=== PATIENT | male | born 1980 | race American Indian/Alaskan Native ===

== ENCOUNTER 2018-11-30 16:03 | Emergency (ER) | payer OTHER ==
--- NOTE | 2018-11-30 16:12 | Emergency Department Report ---
Blank Doc - Documentation Documentation: This is a 38-year-old male that presents with right foot pain and swelling. This initial assessment/diagnostic orders/clinical plan/treatment(s) is/are subject to change based on patient's health status, clinical progression and re- assessment by fellow clinical providers in the ED. Further treatment and workup at subsequent clinical providers discretion. Patient/guardians urged not to elope from the ED as their condition may be serious if not clinically assessed and managed. Initial orders include: 1- Patient sent to [facility] for further evaluation and treatment 2- xray for stress fracture
[2018-11-30] MEDS ORDERED: DECADRON IM ONE (16:37)
[2018-11-30] MEDS ORDERED: IBUPROFEN PO ONE (16:38)
[2018-11-30] MEDS ORDERED: SOLU-Medrol IM ONE (16:38)
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
[2018-11-30] MEDS ORDERED: CATAPRES PO ONE (16:48)
[2018-11-30 17:15] VITALS: BP 144/88
--- NOTE | 2018-11-30 17:33 | XRay Report ---
PROCEDURE: XR FOOT 3+V RT TECHNIQUE: Frontal, lateral, oblique views right foot HISTORY: right foot pain COMPARISONS: None FINDINGS: There is evidence of diffuse edema of the distal leg, ankle and foot. There is no evidence of fracture, subluxation, lytic or blastic change or periosteal reaction. The joint spaces appear to be maintained. There is a plantar calcaneal spur. IMPRESSION: 1. Soft tissue swelling/edema without plain film evidence of acute bony abnormality. If further imaging is required, MRI may be helpful.. This document is electronically signed by Kat Carty MD., November 30 2018 05:29:56 PM ET
== END 2018-11-30 17:26 | disposition home or self-care (01) ==
LOC: ED 16:03
DX: M10.9 Gout, unspecified (principal); R03.0 Elevated blood-pressure reading, without diagnosis of hypertension; F12.10 Cannabis abuse, uncomplicated
CPT/HCPCS: 73630; 96372; 99283; J1100; J2920